=== PATIENT | female | born 1980 | race Caucasian/White ===

== ENCOUNTER 2017-05-29 14:35 | Emergency (ER) | payer MEDICAID ==
[~2017-05-29] VITALS: Ht 167.6 cm; Wt 72.7 kg
[~2017-05-29 14:35] MED LIST: IBUP200C5
[2017-05-29 16:04] LABS: RAPID INFLUENZA A POSITIVE (Negative); RAPID INFLUENZA B Negative (Negative)
[2017-05-29] MEDS ORDERED: KETOROLAC 30 MG/1 ML ONE (17:23)
[2017-05-29] MEDS ORDERED: ACETAMINOPHEN 500 MG TABLET ONE (17:23)
[2017-05-29] MEDS ORDERED: KETOROLAC 30 MG/1 ML IVPush ONE (17:30)
[2017-05-29] MEDS ORDERED: SODIUM CHLORIDE 0.9% 1,000ML IV ONE (17:30)
[2017-05-29] MEDS ORDERED: SODIUM CHLORIDE FLUSH 10ML SYR IVF ONE (17:30)
[2017-05-29] MEDS ORDERED: ACETAMINOPHEN 325 MG TABLET PO ONE (17:30)
[2017-05-29 17:37] VITALS: BP 118/71
== END 2017-05-29 19:30 | disposition home or self-care (01) ==
LOC: ED 18:59
DX: J09.X2 Influenza due to identified novel influenza A virus with other respiratory manifestations (principal)
CPT/HCPCS: 71020; 87400; 96361; 96374; 99285; J1885; J7030

== ENCOUNTER 2018-06-19 19:14 | Emergency (ER) | payer SELFPAY ==
[~2018-06-19] VITALS: Ht 167.6 cm; Wt 70.0 kg
[~2018-06-19 19:14] MED LIST changes: +IBUP-1623; -IBUP200C5
[2018-06-19 19:40] VITALS: BP 124/74
[2018-06-19 20:11] LABS: CULTURE INDICATED? YES; MICROSCOPIC INDICATED
== END 2018-06-19 20:51 | disposition home or self-care (01) ==
LOC: ED 20:45
DX: N30.90 Cystitis, unspecified without hematuria (principal); F17.200 Nicotine dependence, unspecified, uncomplicated
CPT/HCPCS: 76830; 81001; 87077; 87086; 87186; 99284